=== PATIENT | female | born 1975 | race African-American/Black ===

== ENCOUNTER 2016-11-14 18:04 | Emergency (ER) | payer OTHER ==
[~2016-11-14 18:04] MED LIST: BACTRIM DS TABL1 TA1 PO; CIPRO PO; DIFLUCAN PO; FLEXERIL10 M1 PO; METROGEL-VAGINA70 GM VG; NYSTATIN-TRIAMC15 G1 TP; PREDNISONE PO; PYRIDIUM PO; VAGISIL CREAM28 GM TP; VOLTAREN50 MG PO
== END 2016-11-14 18:08 | disposition home or self-care (01) ==
LOC: CFTX 18:04
DX: L03.011 Cellulitis of right finger (principal); I10 Essential (primary) hypertension
CPT/HCPCS: 10060; 99283